=== PATIENT | female | born 1995 | race Two or more races ===

== ENCOUNTER 2024-05-31 16:49 | Emergency (ER) | payer MEDICAID ==
[~2024-05-31] VITALS: Ht 157.5 cm; Wt 85.0 kg
[2024-05-31] MEDS: ONDANSETRON ODT 4 MG TAB PO ONE (17:38)
[2024-05-31] MEDS: HYDROmorphone HCL 2 MG/ML VL/or syr IM ONE (17:38)
[2024-05-31] MEDS ORDERED: SILV1CRE82 TOP (19:25)
[2024-05-31] MEDS ORDERED: IBU600T PO (19:25)
[2024-05-31 19:43] VITALS: BP 149/91; PULSE 90; RESP 18; TEMP 98.7; O2SAT 96
[2024-05-31] MEDS: SILVER SULFADIAZINE 1 % TOPICAL CREAM 50GM TOP ONE (19:45)
[2024-05-31] MEDS: TETANUS-DIPTH-ACEL PERTUSSIS 0.5ML SYR Tdap IM ONE (19:47)
== END 2024-05-31 20:00 | disposition home or self-care (01) ==
LOC: ER 16:49
DX: T21.21XA Burn of second degree of chest wall, initial encounter (principal); T22.20XA Burn of second degree of shoulder and upper limb, except wrist and hand, unspecified site, initial encounter; T31.0 Burns involving less than 10% of body surface; Z98.890 Other specified postprocedural states; X12.XXXA Contact with other hot fluids, initial encounter; Y93.89 Activity, other specified; Y92.89 Other specified places as the place of occurrence of the external cause; Y99.8 Other external cause status
CPT/HCPCS: 16000; 90471; 90715; 96372; 99284; J1170; Q0162

== ENCOUNTER 2024-08-14 03:14 | Emergency (ER) | payer MEDICAID ==
[~2024-08-14] VITALS: Ht 157.5 cm; Wt 82.6 kg
[~2024-08-14 03:14] MED LIST: IBU600T PO; SILV1CRE82 TOP
[2024-08-14 04:15] LABS: Basophils # (auto) 0.1 10 ^3/uL (0-0.2); Basophils % (auto) 0.6 % (0.0-2.0); Eosinophils # (auto) 0 10 ^3/uL (0-0.8); Eosinophils % (auto) 0.4 % (0.0-7.0); Hematocrit 40.2 % (36.0-46.0); Hemoglobin 13.7 g/dL (12.2-16.2); Lymphocytes # (auto) 1.8 10 ^3/uL (0.4-5.4); Lymphocytes % (auto) 15.1 % (10.0-50.0); Mean Corpuscular Hemoglobin 29.5 pg (28.0-32.0); Mean Corpuscular Hgb Conc. 34.2 g/dL (32.0-36.0); Mean Corpuscular Volume 86.2 fL (80.0-100.0); Monocytes # (auto) 0.8 10 ^3/uL (0-1.3); Monocytes % (auto) 6.4 % (0.0-12.0); Neutrophils # (auto) 9.1 10 ^3/uL (1.6-8.6); Neutrophils % (auto) 77.5 % (37.0-80.0); Nucleated Red Blood Cells % 0.2 %; Platelet Count (auto) 321 10^3/uL (140-450); Red Blood Cells 4.66 10^6/uL (4.0-5.20); Red Cell Distribution Width 13.1 % (11.8-14.3); White Blood Cell 11.8 10^3/uL (4.4-10.8)
[2024-08-14 04:33] LABS: Alanine Aminotransferase 99 U/L (7-40); Albumin 4.2 g/dL (3.2-4.8); Alkaline Phosphatase 65 U/L (46-116); Anion Gap 9 (5-15); Aspartate Aminotransferase 77 U/L (13-40); BUN/Creatinine Ratio 9.7 (10.0-20.0); Bilirubin, Total 0.9 mg/dL (0.2-1.0); Blood Urea Nitrogen 7 mg/dL (9-23); Calcium 9.1 mg/dL (8.7-10.4); Carbon Dioxide 21 mmol/L (20-30); Chloride 104 mmol/L (98-107); Glucose 128 mg/dL (74-106); Potassium 3.9 mmol/L (3.5-5.1); Sodium 134 mmol/L (136-145)
[2024-08-14 04:34] LABS: Total Protein 7.5 g/dL (5.7-8.2)
[2024-08-14 05:19] VITALS: BP 117/78; PULSE 117; RESP 14; O2SAT 98
[2024-08-14] MEDS ORDERED: HYDR-4902 PO (05:35)
[2024-08-14] MEDS: ONDANSETRON HCL 4 MG/2 ML VIAL IV ONE (05:37)
[2024-08-14] MEDS: SODIUM CHLORIDE 0.9% 1,000 ML IV ONE (05:37)
[2024-08-14] MEDS: KETOROLAC TROMETH 30 MG/ML 1ML VIAL IV ONE (05:38)
== END 2024-08-14 07:00 | disposition home or self-care (01) ==
LOC: ER 03:14
DX: R10.84 Generalized abdominal pain (principal); R10.2 Pelvic and perineal pain; R51.9 Headache, unspecified; R11.2 Nausea with vomiting, unspecified
CPT/HCPCS: 36415; 74176; 80053; 84702; 85025; 96361; 96374; 96375; 99285; J1885; J2405; J7030

== ENCOUNTER → 2025-02-22 | Day surgery (SDC) | payer MEDICAID ==
[2025-02-20 14:10] LABS: Urine Bacteria None Seen /hpf (None Seen)
[2025-02-20 14:15] LABS: Basophils # (auto) 0.1 10 ^3/uL (0-0.2); Basophils % (auto) 0.6 % (0.0-2.0); Eosinophils # (auto) 0.2 10 ^3/uL (0-0.8); Eosinophils % (auto) 2.4 % (0.0-7.0); Hematocrit 43.4 % (36.0-46.0); Hemoglobin 14.3 g/dL (12.2-16.2); Lymphocytes # (auto) 2.5 10 ^3/uL (0.4-5.4); Mean Corpuscular Hemoglobin 29.5 pg (28.0-32.0); Mean Corpuscular Hgb Conc. 33.1 g/dL (32.0-36.0); Mean Corpuscular Volume 89.1 fL (80.0-100.0); Monocytes # (auto) 0.6 10 ^3/uL (0-1.3); Monocytes % (auto) 6.3 % (0.0-12.0); Neutrophils # (auto) 5.9 10 ^3/uL (1.6-8.6); Neutrophils % (auto) 63.7 % (37.0-80.0); Platelet Count (auto) 405 10^3/uL (140-450); Red Blood Cells 4.86 10^6/uL (4.0-5.20); Red Cell Distribution Width 13.9 % (11.8-14.3); White Blood Cell 9.3 10^3/uL (4.4-10.8)
[2025-02-20 14:28] LABS: INR 0.96 (0.9-1.15); Partial Thromboplastin Time 26.5 SEC (24.5-34.5); Prothrombin Time 10.2 sec (9.3-11.8)
[2025-02-20 14:37] LABS: Urine Blood Negative /uL (Negative); Urine Clarity Clear (Clear); Urine Color Yellow (Yellow); Urine Mucus FEW (None Seen); Urine Protein, UAD TRACE (Negative); Urine Specific Gravity 1.025 (1.001-1.035); Urine Squamous Epithelial Cell FEW /hpf (<5); Urine Urobilinogen Normal (Negative); Urine WBC 2 /HPF (0-5); Urine pH 6.5 (5.0-9.0)
[2025-02-20 14:45] LABS: Albumin 4.6 g/dL (3.2-4.8); Alkaline Phosphatase 60 U/L (46-116); Anion Gap 10 (5-15); BUN/Creatinine Ratio 9.2 (10.0-20.0); Carbon Dioxide 26 mmol/L (20-31); Chloride 105 mmol/L (98-107); Potassium 3.7 mmol/L (3.5-5.1); Sodium 141 mmol/L (136-145); Total Protein 7.9 g/dL (5.7-8.2)
[2025-02-20 14:46] LABS: Alanine Aminotransferase 50 U/L (7-40); Aspartate Aminotransferase 53 U/L (13-40); Bilirubin, Total 0.3 mg/dL (0.2-1.0); Blood Urea Nitrogen 7 mg/dL (9-23); Glucose 110 mg/dL (74-106)
[~2025-02-22] VITALS: Ht 157.5 cm; Wt 89.8 kg
[~2025-02-22] MED LIST changes: +ACET1CAP14 PO; +BUPIVACAINE HCL 50 ML ONE; +DexAMETHasone SOD PHOS 10MG/1ML VIAL INJ ONE; +EPINEPHrine HCL 1 MG/1 ML AMP ONE; +GLYCOPYRROLATE 0.2 MG/ML 1ML VIAL ONE; +HYDR-4902 PO; +HYDROmorphone HCL 2 MG/ML VL/or syr IV PRN; +HYDROmorphone HCL 2 MG/ML VL/or syr ONE; +KETAMINE 50mg/ML 1ml syringe ONE; +LIDOCAINE 1% INJ PF 5ML AMP ONE; +LIDOCAINE HCL 2% TOP JELLY 5ML TOP ONE; +MIDAZOLAM HCL 2MG/2ML 2ml VIAL (1mg/ml) ONE; +MORPHINE SULFATE 4 MG/ML SYR/VIAL IV PRN; +MORPHINE SULFATE INJ 2 MG/ml SYRG IV PRN; +NEOSTIGMINE 1 MG/ML INJ (10mg/10ML VIAL) ONE; +NORE-72 PO; +ONDANSETRON HCL 4 MG/2 ML VIAL ONE; +RIME75TA PO; +ROCURONIUM 10MG/ML 10ML VIAL IV ONE; +SODIUM CHLORIDE LOCK 10 ML ONE; +SUCCINYLCHOLINE CHLORIDE 20 MG/ML 10ML VIAL IV ONE; +ceFAZolin 2 GM/D5W100ml 100 ML IV ONE; +fentaNYL CITRATE 100 MCG/2 ML VL ONE
[2025-02-22 12:12] VITALS: PULSE 98; RESP 15; TEMP 97.5; O2SAT 98
[2025-02-22] MEDS: KETOROLAC TROMETH 30 MG/ML 1ML VIAL IV ONE (12:57)
[2025-02-22] MEDS: HYDROmorphone HCL 2 MG/ML VL/or syr IV PRN (13:18)
[2025-02-22 14:00] VITALS: BP 120/68; PULSE 98; RESP 15; O2SAT 97
[2025-02-22] MEDS: METOCLOPRAMIDE HCL 5MG/ml INJ 2ml VIAL IV ONE (14:22)
--- NOTE | 2025-02-23 00:07 | DVHOP ---
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 PROCEDURES: Right knee arthroscopy with lateral meniscus repair using outside-in technique and all-inside technique. ANESTHESIA: General. COMPLICATIONS: None. ESTIMATED BLOOD LOSS: Less than 5 mL. IMPLANTS USED: Arthrex FiberStitch all-inside device x3, 2 Prolene sutures. SULFONATION EQUIPMENT OPERATOR: Margarita Schwartz PA-C INDICATIONS FOR PROCEDURE: The patient is a 29-year-old female who presented to the clinic with a history of right knee pain. Clinical neurological evaluation demonstrated a complex lateral meniscus tear. Nonoperative and operative management options were discussed. Surgery in the form of a right knee arthroscopy with meniscus repair versus meniscectomy was recommended given the significant nature of the tear. Benefits, risks, and treatment alternatives were discussed. Specific complications of surgery such as neurovascular injury, infection, arthrofibrosis, loss of limb or life were discussed. The patient decided to proceed with surgical option. DESCRIPTION OF PROCEDURE: The patient was identified in the preoperative holding area and the surgical site was marked, consent was verified. She was brought into the operating room, laid supine on the operating table and general anesthesia was administered. Intravenous antibiotics were given. The extremity was prepped and draped in usual sterile manner. A timeout was called out to confirm the identity of the patient, ____ allergies to medications. Standard anterolateral portal was established. A 30-degree scope was inserted. Standard anteromedial portal was established. A probe was inserted and findings were as follows: * Complex lateral meniscus tear with discoid component. * Intact ACL and PCL. * Intact medial meniscus. * Intact medial compartment cartilage. * Grade 2 chondromalacia lateral tibial plateau. * Intact patellofemoral joint. * No loose bodies. Lateral meniscus tear was probed. This was a complex tear all the way from anterior to posterior direction. This was in a setting of a discoid meniscus with a bucket handle component. Visualization was very difficult due to the tissue displaced in the intercondylar notch. Very carefully, the saucerization procedure was completed. For this, different kind of biters had to be used, different kinds of juni had to be used. This was a complex procedure, removing inner one-third of the lateral meniscus. There was also a tear extension all the way to the anterior horn. This had to be repaired using outside-in fashion technique. These 2 spinal needles were inserted. One Prolene suture was inserted through one of the spinal needle and then a nitinol suture wire was inserted through the other spinal needle. The Prolene suture was then inserted into ____ and retrieved and a knot was tied. This reduced the meniscus quite well. Another stitch was used lateral to this repair for excellent outside-in repair of the anterior horn and the mid body. From the mid body to the posterior area, all-inside technique was used. A fibrous tissue implant was used. This was defined as per bolt loader's guidelines. Half cannula was inserted. Next, the anchor was inserted. The first anchor was deployed, the second anchor was deployed and the self-locking knot was tied for excellent fixation. This was a very complex case, discoid meniscus with bucket handle component and multiple techniques were used. The services of physician client services assistant were very essential to perform procedure. Irrigation was given. The incisions were closed with nylon sutures. Two additional portals were made, one transpatellar and one far medial. These were necessary for deployment of the relevant anchors. ____ range of motion brace set at -10 degrees of full extension and locked in extension. DISPOSITION: Good, the patient was extubated and taken to recovery without complications. PLAN: To keep the patient nonweightbearing for 8 weeks. Range of motion exercises will start after 6 weeks. MD JAIME Flower/BERNARD/YOSHI TID: [id number] RECEIPT: [id number]
== END | disposition home or self-care (01) ==
LOC: SUR 02-13 07:02
PROVIDERS: ATTEND Orthopaedic Surgery Sports Medicine
DX: S83.251A Bucket-handle tear of lateral meniscus, current injury, right knee, initial encounter (principal); M22.41 Chondromalacia patellae, right knee; G43.909 Migraine, unspecified, not intractable, without status migrainosus; Z79.899 Other long term (current) drug therapy; Z85.89 Personal history of malignant neoplasm of other organs and systems; Z90.49 Acquired absence of other specified parts of digestive tract; Z90.89 Acquired absence of other organs; X58.XXXA Exposure to other specified factors, initial encounter; Y93.89 Activity, other specified; Y92.89 Other specified places as the place of occurrence of the external cause; Y99.8 Other external cause status
CPT/HCPCS: 29882; 36415; 80053; 81001; 84702; 85025; 85610; 85730; C1713; J0330; J1100; J1171; J1885; J2250; J2405; J2765; J3010; J3490; J0171

== ENCOUNTER 2025-02-25 15:18 | Emergency (ER) | payer MEDICAID ==
[~2025-02-25] VITALS: Ht 157.5 cm; Wt 86.3 kg
[~2025-02-25 15:18] MED LIST changes: -BUPIVACAINE HCL 50 ML ONE; -DexAMETHasone SOD PHOS 10MG/1ML VIAL INJ ONE; -EPINEPHrine HCL 1 MG/1 ML AMP ONE; -GLYCOPYRROLATE 0.2 MG/ML 1ML VIAL ONE; -HYDROmorphone HCL 2 MG/ML VL/or syr IV PRN; -HYDROmorphone HCL 2 MG/ML VL/or syr ONE; -KETAMINE 50mg/ML 1ml syringe ONE; -LIDOCAINE 1% INJ PF 5ML AMP ONE; -LIDOCAINE HCL 2% TOP JELLY 5ML TOP ONE; -MIDAZOLAM HCL 2MG/2ML 2ml VIAL (1mg/ml) ONE; -MORPHINE SULFATE 4 MG/ML SYR/VIAL IV PRN; -MORPHINE SULFATE INJ 2 MG/ml SYRG IV PRN; -NEOSTIGMINE 1 MG/ML INJ (10mg/10ML VIAL) ONE; -ONDANSETRON HCL 4 MG/2 ML VIAL ONE; -ROCURONIUM 10MG/ML 10ML VIAL IV ONE; -SODIUM CHLORIDE LOCK 10 ML ONE; -SUCCINYLCHOLINE CHLORIDE 20 MG/ML 10ML VIAL IV ONE; -ceFAZolin 2 GM/D5W100ml 100 ML IV ONE; -fentaNYL CITRATE 100 MCG/2 ML VL ONE
--- NOTE | 2025-02-25 18:02 | DVH ---
EXAM: XY R FOOT 3 VIEW XRAY CLINICAL HISTORY: pain s/p surgery COMPARISON: None TECHNIQUE: XY R FOOT 3 VIEW XRAY Findings/Impression: 3 views of the right foot. There is no evidence of an acute fracture, dislocation, blastic, or lytic lesions. No radiopaque foreign bodies. No superficial soft tissue abnormalities.
--- NOTE | 2025-02-25 18:54 | ED.PDOC ---
Musculoskeletal HPI Comments 29 y.o female presents to the ED for a chief complaint of right calf pain associated with right foot swelling. Patient reports right knee meniscus surgery on 02/22/25 with no numbness, tingling sensation to knee itself but was concerned of possible blood clots to tender region. Patient denies any fever, chills, chest pain, SOB, or recent trauma s/p surgery. Chief Complaint: Lower Extremity Time Seen by MD: 18:46 Primary Care Provider: CHELO Reviewed Notes: Nurses Notes, Medications, Allergies Allergies: Coded Allergies: NO KNOWN ALLERGIES (Unverified , 02/18/12) Home Meds Active Scripts Hydrocodone-Acetaminophen (Hydrocodone Bitartrate/AC 5-325 mg) 1 Tab Tab, 1 TAB PO QIDPRN, #20 TAB Prov:ANIYAH EID MD 08/14/24 Silver Sulfadiazine (Silvadene) 1 % Cre, 1 APPLIC TOP BID PRN for 10 Days, #10 GRAMS Prov:FRANKY ODELL MD 05/31/24 Ibuprofen Micronized (MOTRIN TABLET) 600 Mg Tb, 800 MG PO QID PRN for 40 Days, #40 TAB *Black box warning-NSAIDS can increase risk of IN & hypertension, GI irritation, ulceration, bleed, perferation. Do not use post cardiac surgery. Use short duration/lowest effective dose. Prov:FRANKY ODELL MD 05/31/24 Reported Medications Acetaminophen (Tylenol) 325 Mg Cap, PO PRN, CAP 02/08/25 Rimegepant Sulfate (Nurtec) 75 Mg Tab, 75 MG PO PRN, TAB 02/08/25 Norethin Acet & Estrad-Fe (Sarai 24 Fe 1-20 mg-Mcg(24)) 1 Tab Tab, 1 TAB PO DAILY, TAB 02/08/25 Information Source: Patient Mode of Arrival: Ambulatory Location: Right Extremity Location: Calf, Foot Timing: Hours Severity: Moderate Able to Move Extremity: No Bear Weight: Limited Pain: Moderate Mechanism: None Circumstances: Spontaneous Onset of Symptoms: Spontaneous Symptoms: Swelling, Pain Associated signs and symptoms: Swelling Past Medical History PAST MEDICAL HISTORY: CVA Surgical History (Other): right knee DIGITAL MARKETING CONSULTANT History: Denies all DIGITAL MARKETING CONSULTANT Hx Family History Family History: Unknown Social History Smoker: Non-Smoker Alcohol: Denies ETOH Use Drugs: Denies Drug Use Lives In: Home Constitutional: denies: chills, diaphoresis, fatigue, fever, malaise, sweats, weakness, others EENTM: denies: blurred vision, double vision, ear bleeding, ear discharge, ear drainage, ear pain, ear ringing, eye pain, eye redness, hearing loss, mouth pain, mouth swelling, nasal discharge, nose bleeding, nose congestion, nose pa in, photophobia, tearing, throat pain, throat swelling, voice changes, others Respiratory: denies: cough, hemoptysis, orthopnea, SOB at rest, shortness of breath, SOB with excertion, stridor, wheezing, others Cardiovascular: denies: chest pain, dizzy spells, diaphoresis, Dyspnea on exertion, edema, irregular heart beat, left arm pain, lightheadedness, palpitations, PND, syncope, others Gastrointestinal: denies: abdomen distended, abdominal pain, blood streaked bowels, constipated, diarrhea, dysphagia, difficulty swallowing, hematemesis, melena, nausea, poor appetite, poor fluid intake, rectal bleeding, rectal pain, vomiting, others Genitourinary: denies: abnormal vagina bleeding, burning, dyspareunia, dysuria, flank pain, frequency, hematuria, incontinence, pain, , vagina discharge, urgency, others Neurological: denies: dizziness, fainting, headache, left sided numbness, left sided weakness, numbness, paresthesia, pre-existing deficit, right sided numbness, right sided weakness, seizure, speech problems, tingling, tremors, weakness, others Musculoskeletal: reports: others (right calf pain and right foot swelling ); denies: back pain, gout, joint pain, joint swelling, muscle pain, muscle stiffness, neck pain Integumetry: denies: bruises, change in color, change in hair/nails, dryness, laceration, lesions, lumps, rash, wounds, others Allergic/Immunocompromised: denies: Difficulty Healing, Frequent Infections, Hives, Itching, others Hematologic/Lymphatic: denies: anemia, blood clots, easy bleeding, easy bruising, swollen glands, others Endocrine: denies: excessive hunger, excessive sweating, excessive thirst, excessive urination, flushing, intolerance to cold, intolerance to heat, unexplained weight gain, unexplained weight loss, others Psychiatric: denies: anxiety, bipolar disorder, depression, hopeless, panic disorder, schizophrenia, sleepless, suicidal, others All Other Systems: Reviewed and Negative Physical Exam General Appearance: No Apparent Distress, Normal HEENT: Normal ENT Inspection, Pharynx Normal, TMs Normal Neck: Full Range of Motion, Non-Tender, Normal, Normal Inspection Respiratory: Chest Non-Tender, Lungs Clear, No Accessory Muscle Use, No Respiratory Distress, Normal Breath Sounds Cardiovascular: No Edema, No JVD, No Murmur, No Gallop, Normal Peripheral Pulses, Regular Rate/Rhythm Breast Exam: Deferred Gastrointestinal: No Organomegaly, Non Tender, No Pulsatile Mass, Normal Bowel Sounds, Soft Genitalia: Deferred Pelvic: Deferred Rectal: Deferred Extremities: No calf tenderness, Normal capillary refill, Normal inspection, Normal range of motion, Non-tender, No pedal edema Musculoskeletal : Location: Right Extremity Location: Calf Apperance: Tenderness: Moderate Neurologic: Alert, chain sales representative II-XII nml as Tested, No Motor Deficits, Normal Affect, Normal Mood, No Sensory Deficits Cerebellar Function: Normal Reflexes: Normal Skin: Dry, Normal Color, Warm Lymphatic: No Adenopathy Was a procedure done? Was a procedure done?: No Differential Diagnosis EXT Differential Diagnosis: Deep Vein Thrombosis, Sprain, Contusion, Strain X-Ray, Labs, Meds, VS Vital Signs Date Time Temp Pulse Resp B/P (MAP) Pulse Ox O2 Delivery O2 Flow Rate FiO2 02/25/25 19:22 121 19 97 Room Air* 0 21 02/25/25 19:21 98.1 121 19 153/92 (112) 97 98.1 02/25/25 15:30 98.8 130 18 107/59 (75) 97 98.8 Current Medications Medications (Trade) Dose Ordered Sig/Alex Route Start Time Stop Time Status Last Admin Acetaminophen/ Hydrocodone Bitart ([place] 10/325MG Tab) 1 tab ONCE ONCE PO 02/25/25 19:00 02/25/25 19:01 DC 02/25/25 19:21 Time of 1ST Reevaluation: 18:51 Reevaluation 1ST: Unchanged Patient Education/Counseling: Diagnosis, Treatment, Prognosis Family Education/Counseling: Diagnosis, Treatment, Prognosis Departure 1 Departure Time of Disposition: 19:47 Impression: Primary Impression: Post-operative pain Disposition: 01 HOME / SELF CARE / HOMELESS Condition: Stable Discharged With: Self, Relative (Father) Critical Care Note Critical Care Time?: No Stability Stability form required: No I personally scribed for MAC HUERTA MD ([email or web address]) on 02/25/25 at 18:54. Electronically submitted by Velia Soto ([facility]). MAC HUERTA MD Feb 25, 2025 18:54
[2025-02-25 19:21] VITALS: BP 153/92; TEMP 98.1
[2025-02-25] MEDS: HYDROcodone-ACET 10/325MG TAB PO ONE (19:21)
[2025-02-25 19:22] VITALS: PULSE 121; RESP 19; O2SAT 97
--- NOTE | 2025-02-25 19:39 | DVH ---
CLINICAL HISTORY: right calf pain s/p knee surgery TECHNIQUE: Color and duplex doppler imaging of the right lower extremity veins was performed. Vessel compression if possible was also performed. WID: COMPARISON: None FINDINGS: Right common femoral vein: Normal compressibility and flow. Right femoral vein: Normal compressibility and flow. Right popliteal vein: Not visualized due to knee wrap and brace The trifurcation Calf veins not visualized due to knee wrap and brace. The posterior tibial vein in the calf is patent. IMPRESSION: NO SONOGRAPHIC EVIDENCE FOR DEEP VENOUS THROMBOSIS IN THE RIGHT LOWER EXTREMITY VEINS. Nonvisualizati on of the right popliteal vein and the trifurcation origin veins due to knee wrap and brace in place.
== END 2025-02-25 20:12 | disposition home or self-care (01) ==
LOC: ER 15:18
DX: G89.18 Other acute postprocedural pain (principal); M79.661 Pain in right lower leg; Z98.890 Other specified postprocedural states
CPT/HCPCS: 73630; 93971